=== PATIENT | male | born 1980 | race Caucasian/White ===

== ENCOUNTER 2018-12-02 14:31 | Inpatient (IN) | payer OTHER ==
[2018-12-02 18:09] VITALS: BMI 36.8
[2018-12-02] MEDS ORDERED: HEPARIN SODIUM,PORCINE 5,000 UNIT/ML 1 ML VIAL IV PRN (18:18)
[2018-12-02] MEDS ORDERED: HEPARIN SOD,PORK IN 0.45% NACL 25,000 UNIT in 0.45% NACL 1 250ML.BAG IV SCH (18:30)
[2018-12-02 18:32] LABS: HCT 45.5 % (39.0-53.0); MCH 29.1 pg (25.0-35.0); MCHC 32.9 g/dL (31.0-37.0); MCV 88.3 fL (80.0-100.0); Mean Platelet Volume 7.7; Platelet Count 202 k/uL (150-450); RBC 5.15 m/uL (4.30-5.90); RDW 12.9 % (11.5-15.5); WBC 5.8 k/uL (3.8-10.6)
[2018-12-02] MEDS: ACETAMINOPHEN TAB 325 MG TAB PO PRN (18:50)
[2018-12-02 18:51] LABS: ALT 82 U/L (21-72); AST 62 U/L (17-59); Albumin 4.8 g/dL (3.5-5.0); Alkaline Phosphatase 116 U/L (38-126); Anion Gap 11 mmol/L; Blood Urea Nitrogen 10 mg/dL (9-20); Calcium 9.6 mg/dL (8.4-10.2); Carbon Dioxide 27 mmol/L (22-30); Chloride 102 mmol/L (98-107); Glucose 101 mg/dL (74-99); Magnesium 2.1 mg/dL (1.6-2.3); Potassium 4.3 mmol/L (3.5-5.1); Sodium 140 mmol/L (137-145); Total Bilirubin 0.5 mg/dL (0.2-1.3); Total Protein 7.9 g/dL (6.3-8.2)
--- NOTE | 2018-12-02 22:16 | P.HPIM ---
History of Present Illness H&P Date: 12/02/18 The patient is a 38 yo M with a PMH of seizure disorder, polysubstance abuse, manic depressive, borderline personality, and PTSD who was sent in from [facility] under police custody for acute LLE DVT and PEs. The patient is an inmate at a local group home and reports that since his sentencing, he had been feeling depressed and had been ambulating only an hour daily and had been in bed remaining of the time. He reports that 3-5 days ago, he noticed a pain in the back of his L knee which gradually worsened, along w/ the leg being warmer and somewhat swollen as compared to the right. He also endorsed some episodes of pleuritic chest pain 1 week ago which resolved spontaneously. The patient was initially taken to [facility] where he was diagnosed w/ a LLE acute DVT along with pulmonary embolism. He was started on IV Heparin infusion and was transferred to [facility] for further evaluation. The patient reports that the pain in his L leg has improved significantly and is presently a 08/28. He denied additional episodes of chest pain, or SOB. Further denied nausea, vomiting, abdominal pain, or diaphoresis. The patient denied any prior history of clots. He notes that he was in foster care and therefore doesn't know his family history. He otherwise denied weight loss, blood in stools, or any additional complaints. Review of Systems Pertinent positives and negatives as discussed in HPI, a complete review of systems was performed and all other systems are negative. Past Medical History Past Medical History: Seizure Disorder History of Any Multi-Drug Resistant Organisms: None Reported Past Surgical History: No Surgical Hx Reported Past Psychological History: Anxiety, Bipolar, Depression, PTSD Smoking Status: Former smoker - Past Family History Father Family Medical History: Unable to Obtain Additional Family Medical History / Comment(s): Foster care Mother Family Medical History: Coronary Artery Disease (CAD) Additional Family Medical History / Comment(s): " heart disease". Foster Care Medications and Allergies Home Medications Medication Instructions Recorded Confirmed Type ARIPiprazole [Abilify] 10 mg PO HS 12/02/18 12/02/18 History Citalopram Hydrobromide [CeleXA] 20 mg PO DAILY 12/02/18 12/02/18 History Omeprazole 20 mg PO DAILY 12/02/18 12/02/18 History Phenytoin Sodium Extended 300 mg PO DAILY 12/02/18 12/02/18 History [Phenytek] Ranitidine HCl 150 mg PO BID 12/02/18 12/02/18 History Allergies Allergy/AdvReac Type Severity Reaction Status Date / Time trazodone Allergy Rash/Hives Verified 12/02/18 19:47 Physical Exam Vitals: Vital Signs Temp Pulse Resp BP Pulse Ox 12/02/18 18:33 75 18 12/02/18 18:32 98.1 F 75 18 130/93 97 Intake and Output 12/02/18 12/02/18 12/02/18 06:59 14:59 22:59 Intake Total 160 Output Total 450 Balance -290 Intake: Oral 160 Output: Urine 450 Other: Voiding Method Toilet Urinal # Voids 1 Weight 130.4 kg General: non toxic, no distress, appears at stated age, normal weight, in police custody w/ handcuffs Derm: no unusual rashes/lesions no unusual ecchymoses, warm, dry Head: atraumatic, normocephalic, symmetric Eyes: EOMI, no lid lag, anicteric sclera, pupils equal round reactive to light ENT: Nose and ears atraumatic, no thrush, no pharyngeal erythema Neck: No thyromegaly, no cervical lymphadenopathy, trachea midline, supple Mouth: no lip lesion, mucus membranes moist Cardiovascular: S1S2 reg, no murmur, positive posterior tibial pulse bilateral, no edema, capillary refill less than 2 seconds Lungs: CTA bilateral, no rhonchi, no rales , no accessory muscle use Abdominal: soft, nontender to palpation, no guarding, no appreciable orga nomegaly, normal bowel sounds Ext: LLE mild calf tenderness, increased wamrth of LLE as compared to RLE, no edema noted, no gross muscle atrophy, muscle strength 5 out of 5 in all 4 extremities grossly, no contractures Neuro: CN II-XI grossly intact, light touch intact all 4 extremities, finger to nose within normal limits, Psych: Alert, oriented, appropriate affect Results CBC & Chem 7: 12/02/18 18:22 12/02/18 18:22 Labs: Abnormal Lab Results - Last 24 Hours (Table) 12/02/18 12/02/18 Range/Units 18:22 18:22 APTT 31.0 H (22.0-30.0) sec Glucose 101 H (74-99) mg/dL AST 62 H (17-59) U/L ALT 82 H (21-72) U/L Thrombosis Risk Factor Assmnt - Choose All That Apply Any of the Below Risk Factors Present?: No Each Factor Represents 1 point: Obesity (BMI >25) Other Risk Factors: No Other congenital or acquired thrombophilia - If yes, enter type in comment: No Thrombosis Risk Factor Assessment Total Risk Factor Score: 1 Thrombosis Risk Factor Assessment Level: Very Low Risk Assessment and Plan Plan: Unprovoked LLE acute DVT and PE -Will switch to Eliquis 10 mg PO BID x 7 days, and then 5 mg PO bid -Consult Hematology -Check hypercoagulability profile -CBC daily Seizure disorder -C/w home med: Dilantin Deranged LFTs -Monitor for now Pulmonary nodular density - 1.7 cm -As visualized on CT scan done at [facility]. Patient will need follow-up CT as ou tpatient for monitoring DVT//GI prophylaxis -Eliquis -No indication for GI prophy. The patient is admitted with an anticipated greater than 2 midnight stay for evaluation of acute DVT and PE. CODE STATUS:Full Code Discussed with: Patient Anticipated discharge date: 12/04/[address] A total of 35 minutes was spent on the care of this complex patient more than 50% of the time was spent in counseling and care coordination.
[2018-12-03] MEDS: ARIPiprazole 10 MG TAB PO SCH ×2 (00:14→20:34)
[2018-12-03] MEDS: APIXABAN 5 MG TAB PO SCH ×3 (00:14→20:33)
[2018-12-03 07:02] LABS: Basophils % (A) 1 %; Eosinophils # (A) 0.1 k/uL (0-0.7); Eosinophils % (A) 2 %; HCT 42.5 % (39.0-53.0); Lymphocytes # (A) 2.3 k/uL (1.0-4.8); Lymphocytes % (A) 40 %; MCH 29.1 pg (25.0-35.0); MCHC 32.9 g/dL (31.0-37.0); MCV 88.5 fL (80.0-100.0); Mean Platelet Volume 7.5; Monocytes # (A) 0.4 k/uL (0-1.0); Monocytes % (A) 6 %; Neutrophils # (A) 2.7 k/uL (1.3-7.7); Neutrophils % (A) 48 %; Platelet Count 167 k/uL (150-450); WBC 5.7 k/uL (3.8-10.6)
[2018-12-03 07:23] LABS: ALT 67 U/L (21-72); AST 40 U/L (17-59); Albumin 4.2 g/dL (3.5-5.0); Alkaline Phosphatase 95 U/L (38-126); Anion Gap 8 mmol/L; Blood Urea Nitrogen 12 mg/dL (9-20); Calcium 9.5 mg/dL (8.4-10.2); Carbon Dioxide 26 mmol/L (22-30); Chloride 103 mmol/L (98-107); Glucose 98 mg/dL (74-99); Potassium 4.3 mmol/L (3.5-5.1); Sodium 137 mmol/L (137-145); Total Bilirubin 0.6 mg/dL (0.2-1.3); Total Protein 7.1 g/dL (6.3-8.2)
[2018-12-03] MEDS: CITALOPRAM HYDROBROMIDE 20 MG TAB PO SCH (08:39)
[2018-12-03] MEDS: PHENYTOIN SODIUM EXTENDED 100 MG CAP PO SCH (08:39)
[2018-12-03] MEDS: PANTOPRAZOLE 40 MG TABLET PO SCH (08:40)
--- NOTE | 2018-12-03 13:06 | P.PN ---
Subjective Progress Note Date: 12/03/18 Principal diagnosis: Follow-up for unprovoked DVT/PE Patient was seen and examined currently asymptomatic denies any chest pain or trouble breathing he is on room air. Currently reports no leg pain. Denies any GI bleeding. Objective - Vital Signs Vital signs: Vital Signs Temp 97.5 F L 12/03/18 12:13 Pulse 67 12/03/18 12:13 Resp 20 12/03/18 12:13 BP 133/74 12/03/18 12:13 Pulse Ox 94 L 12/03/18 12:13 Intake & Output 12/02/18 12/03/18 12/03/18 18:59 06:59 18:59 Intake Total 160 286 120 Output Total 450 300 Balance 160 -164 -180 Weight 130.4 kg 132.5 kg Intake: Intake, IV Titration 46 Amount Heparin Sod,Pork in 0.45% 46 NaCl 25,000 unit In 0.45 % NaCl 1 250ml.bag @ 17. 638 UNITS/KG/HR 23 mls/hr IV .[id number] [facility] Rx#: [id number] Oral 160 240 120 Output: Urine 450 300 Other: Voiding Method Toilet Toilet Toilet Urinal Urinal Urinal # Voids 2 1 - Exam Constitutional: vital signs stable, Not in acute distress, pleasant, conversant Lungs: Clear to auscultation bilaterally, clear to percussion, normal respiratory effort no use of accessory muscles Cardiovascular: Regular rate and rhythm, no murmurs, no gallops, no rubs, no peripheral edema Gastrointestinal: Soft, no tenderness to palpation, no palpable hepatosplenomegally, bowel sounds positive, no abdominal wall hernias Skin: Unremarkable temperature, tone, texture, and turgor, no induration or subcutaneous nodule, no rashes, no lesions, no ulcers Extremities: No digital cyanosis or clubbing, peripheral pulses palpable and equal over bilateral radial arteries and dorsalis pedis artery, no calf muscle tenderness Psych: Alert, oriented to place, person and time, appropriate affect, intact judgment - Labs CBC & Chem 7: 12/03/18 06:24 12/03/18 06:24 Labs: Abnormal Lab Results - Last 24 Hours (Table) 12/02/18 12/02/18 Range/Units 18:22 18:22 APTT 31.0 H (22.0-30.0) sec Glucose 101 H (74-99) mg/dL AST 62 H (17-59) U/L ALT 82 H (21-72) U/L Assessment and Plan Assessment: 38-year-old male with no significant past medical history is currently an inmate accompanied by 2 police officers in the room. He complained of leg pain at intermediate for which further investigation was initiated he was having some swelling in his left thigh along with pain. He was taken to [facility] at which she was diagnosed with left femoral vein acute DVT extending all the way down to the popliteal vein. CT angiogram of the chest revealed left midlung and both lung bases filling defects suspicious for PE Patient was initiated on heparin drip and transferred to our facility for hematology evaluation. Hematology is performing computed tomography scan of abdomen and chest and pelvis to rule out any underlying malignancy due to unprovoked VTE. Otherwise heparin drip was discontinued and he was initiated on Eliquis therapeutic dose on which if tolerated will be discharged back to intermediate on this regimen. He is to follow up with hematology as an outpatient for further workup. Plan: Unprovoked VTE, left lower extremity DVT and pulmonary embolism Patient initiated on Eliquis therapeutic dose he will require 3-6 months of treatment. Follow-up outpatient with hematology. Coagulopathy workup as an outpatient with hematology Check CT abdomen chest pelvis to rule out any underlying malignancy Incidental finding of lung nodule We'll follow up on CAT scan results Outpatient follow-up with serial CAT scans History of seizures Continue Dilantin Anticipated discharge today or tomorrow back to intermediate with prescription for Eliquis.
[2018-12-03] MEDS: IOPAMIDOL-300 CONTRAST 30 ML VIAL (ORAL USE) PO PRN ×2 (14:43→15:45)
--- NOTE | 2018-12-03 15:39 | P.CONS ---
History of Present Illness - Reason for Consult Consult date: 12/03/18 Unprovoked Thrombus PE/DVTs Requesting physician: Seun [place] - Chief Complaint SOB and swelling - History of Present Illness Incarcerated male with new diagnosis of Thrombolic event, unprovoked Review of Systems A 14 point review of system assessed and completed and all negative except HPI Past Medical History Past Medical History: Seizure Disorder History of Any Multi-Drug Resistant Organisms: None Reported Past Surgical History: No Surgical Hx Reported Past Psychological History: Anxiety, Bipolar, Depression, PTSD Smoking Status: Former smoker - Past Family History Father Family Medical History: Unable to Obtain Additional Family Medical History / Comment(s): Foster care Mother Family Medical History: Coronary Artery Disease (CAD) Additional Family Medical History / Comment(s): " heart disease". Foster Care Medications and Allergies Home Medications Medication Instructions Recorded Confirmed Type ARIPiprazole [Abilify] 10 mg PO HS 12/02/18 12/02/18 History Citalopram Hydrobromide [CeleXA] 20 mg PO DAILY 12/02/18 12/02/18 History Omeprazole 20 mg PO DAILY 12/02/18 12/02/18 History Phenytoin Sodium Extended 300 mg PO DAILY 12/02/18 12/02/18 History [Phenytek] Ranitidine HCl 150 mg PO BID 12/02/18 12/02/18 History Apixaban [Eliquis] 5 mg PO BID 90 Days #180 tab 12/04/18 Rx Allergies Allergy/AdvReac Type Severity Reaction Status Date / Time trazodone Allergy Rash/Hives Verified 12/02/18 19:47 Physical Exam Vitals: Vital Signs Temp Pulse Resp BP Pulse Ox 12/03/18 12:13 97.5 F L 67 20 133/74 94 L 12/03/18 11:12 68 20 12/03/18 08:54 68 20 12/03/18 08:53 97.7 F 68 20 119/70 93 L 12/03/18 04:00 98.2 F 58 L 18 132/88 98 12/03/18 00:00 98.6 F 69 18 130/74 99 12/02/18 20:00 98.8 F 79 18 138/62 95 12/02/18 18:33 75 18 12/02/18 18:32 98.1 F 75 18 130/93 97 Intake and Output 12/03/18 12/03/18 12/03/18 06:59 14:59 22:59 Intake Total 286 600 Output Total 300 Balance 286 300 Intake: Intake, IV Titration 46 Amount Heparin Sod,Pork in 0.45% 46 NaCl 25,000 unit In 0.45 % NaCl 1 250ml.bag @ 17. 638 UNITS/KG/HR 23 mls/hr IV .[id number] [facility] Rx#: [id number] Oral 240 600 Output: Urine 300 Other: Voiding Method Toilet Toilet Urinal Urinal # Voids 2 1 Weight 132.5 kg - Constitutional General appearance: average body habitus, no acute distress - EENT Eyes: EOMI, PERRLA ENT: other - Neck Neck: normal ROM - Respiratory Respiratory: bilateral: CTA - Cardiovascular Rhythm: regular - Gastrointestinal General gastrointestinal: normal bowel sounds, soft, tenderness - Integumentary Integumentary: pale - Neurologic Neurologic: CNII-XII intact - Musculoskeletal Musculoskeletal: gait normal, generalized weakness, strength equal bilaterally - Psychiatric Psychiatric: A&O x's 3, appropriate affect, intact judgment & insight Results CBC & Chem 7: 12/04/18 07:20 12/03/18 06:24 Labs: Abnormal Lab Results - Last 24 Hours (Table) 12/02/18 12/02/18 Range/Units 18:22 18:22 APTT 31.0 H (22.0-30.0) sec Glucose 101 H (74-99) mg/dL AST 62 H (17-59) U/L ALT 82 H (21-72) U/L CT scan - abdomen: report reviewed CT scan - chest: report reviewed CT scan - pelvis: report reviewed Venous US: report reviewed Assessment and Plan Plan: Unprovoked DVT/PE: - COntinue on ELiquis at this time - Two Unprovoked events - Rec for lifelong anticoagulation therapy - Hypercoagulable work-up as outpatient - Rec CT Chest/Abd/Pelvis Physician Attes: I have completed the above impression and plan and performed the complete history and physical agree with dictation, dictated as a scribe.
[2018-12-03] MEDS: SODIUM CHLORIDE 0.9% 1,000 ML IV SCH ×2 (15:45→17:35)
[2018-12-03] MEDS: ACETAMINOPHEN TAB 325 MG TAB PO PRN (17:39)
--- NOTE | 2018-12-03 22:34 | CT ---
EXAMINATION TYPE: CT ChestAbdPelvis w con DATE OF EXAM: 12/03/2018 COMPARISON: None HISTORY: Known PE and DVT. R/O underlying malignancy. CT DLP: 2052.8 mGycm Automated exposure control for dose reduction was used. CONTRAST: CT scan of the chest, abdomen and pelvis is performed with Oral Contrast and with IV Contra st, patient injected with 100 mL of Isovue 300. FINDINGS: AIRWAYS: Unremarkable. LUNGS: In the left lower lobe caudally are two 2 cm subpleural opacities, which can be further charac terized with follow-up full inspiration CT. Lungs are otherwise clear and well expanded bilaterally. PLEURAL SPACES: Negative. MEDIASTINUM-PHIL: Bilateral segmental and lobar pulmonary emboli are noted; the right ventricle is si milar in size to the left ventricle and there is flattening of the anterior ventricular septum. This could correlate with a clinical diagnosis of right heart strain. Aorta is negative. There is no cardi omegaly or pericardial effusion. OTHER (CHEST): None. LIVER/GB: No significant abnormality is appreciated. PANCREAS: No significant abnormality is seen. SPLEEN: No significant abnormality is seen. ADRENALS: No significant abnormality is seen. KIDNEYS: No significant abnormality is seen. BOWEL: No significant abnormality is seen. REPRODUCTIVE ORGANS: No gross abnormality seen. LYMPH NODES: No greater than 1 cm abdominal or pelvic lymph nodes are appreciated. OSSEOUS STRUCTURES: No significant abnormality is seen. OTHER: No acute vascular findings. IMPRESSION: 1) CHEST: PROMINENT BILATERAL PULMONARY EMBOLI WITH BORDERLINE CHANGES FOR RIGHT HEART STRAIN. TWO L LL PULMONARY SUBPLEURAL NODULES. 2) ABDOMEN-PELVIS: NO ACUTE PROCESS; NO FOCAL FINDINGS.
[2018-12-04] MEDS: SODIUM CHLORIDE 0.9% 1,000 ML IV SCH ×2 (01:53→08:25)
[2018-12-04 06:34] VITALS: TEMP 97
[2018-12-04 07:37] LABS: Basophils % (A) 1 %; Eosinophils # (A) 0.1 k/uL (0-0.7); Eosinophils % (A) 1 %; HCT 46.6 % (39.0-53.0); HGB 15.3 gm/dL (13.0-17.5); Lymphocytes % (A) 34 %; MCH 28.8 pg (25.0-35.0); MCHC 32.8 g/dL (31.0-37.0); MCV 87.8 fL (80.0-100.0); Mean Platelet Volume 7.6; Monocytes # (A) 0.4 k/uL (0-1.0); Monocytes % (A) 6 %; Neutrophils # (A) 3.2 k/uL (1.3-7.7); Neutrophils % (A) 56 %; Platelet Count 221 k/uL (150-450); RBC 5.31 m/uL (4.30-5.90); RDW 12.9 % (11.5-15.5); WBC 5.7 k/uL (3.8-10.6)
[2018-12-04] MEDS: CITALOPRAM HYDROBROMIDE 20 MG TAB PO SCH (08:14)
[2018-12-04] MEDS: APIXABAN 5 MG TAB PO SCH (08:14)
[2018-12-04] MEDS: PANTOPRAZOLE 40 MG TABLET PO SCH (08:14)
[2018-12-04] MEDS: PHENYTOIN SODIUM EXTENDED 100 MG CAP PO SCH (11:10)
--- NOTE | 2018-12-04 11:25 | P.DS ---
Providers Date of admission: 12/02/18 17:47 Expected date of discharge: 12/04/18 Attending physician: Elina Marie MD Consults: 12/02/18 22:14 Consult Physician Urgent Consulting Provider: Eddi Jenkins Consult Reason/Comments: unprovoked DVT and PE Do you want consulting provider notified?: Yes Primary care physician: Stated None Hospital Course: Final diagnosis at discharge Unprovoked VTE, left lower extremity DVT and pulmonary embolism Incidental two left lower lobe (LLL) subpleural nodules were detected, based on multiplicity , inflammatory or infectious causes is more likely , outpatient survey as outlined below is recommended secondary diagnosis History of seizures hospital course 38-year-old male with no significant past medical history is currently an inmate accompanied by 2 police officers in the room. He complained of leg pain at custodial for which further investigation was initiated he was having some swelling in his left thigh along with pain. He was taken to [facility] at which she was diagnosed with left femoral vein acute DVT extending all the way down to the Calf veins. CT angiogram of the chest revealed left mid lung and both lung bases filling defects suspicious for PE Patient was initiated on heparin drip and transferred to our facility for hematology evaluation. Hematology is performing computed tomography scan of abdomen and chest and pelvis to rule out any underlying malignancy due to unprovoked VTE, which was unremarkable except for two incidental subpleural nodules as indicated below in f/u recs. Heparin drip was discontinued and he was initiated on Eliquis therapeutic dose on which he tolerated well he continues to be asymptomatic at t his time. patient seen and examined on day of discharge, tolerating treatment well, on room air, no tachypnea, blood pressure is stable, no chest pain or leg pain . leg swelling subsided. risk stratification done, Pro BNP negative, troponins negative, which indicates no right heart strain . Pulmonary embolism severity index score, he is Class I Low Risk for complications. Constitutional: vital signs stable, Not in acute distress, pleasant, conversant Lungs: Clear to auscultation bilaterally, clear to percussion, normal respiratory effort no use of accessory muscles Cardiovascular: Regular rate and rhythm, no murmurs, no gallops, no rubs, no peripheral edema Gastrointestinal: Soft, no tenderness to palpation, Bowel sounds positive, no abdominal wall hernias Skin: Unremarkable temperature, tone, texture, and turgor, no induration or subcutaneous nodule, no rashes, no lesions, no ulcers Extremities: No digital cyanosis or clubbing, peripheral pulses palpable and equal over bilateral radial arteries and dorsalis pedis artery, no calf muscle tenderness Psych: Alert, oriented to place, person and time, appropriate affect Patient discharged back to the custodial facility in stable clinical condition Venous thromboembolism (VTE) based on pulmonary embolism severity index score, he is Class I Low Risk for complications Continue Eliquis 10 mg PO BID for 5 more days (total of 7 days) then 5 mg PO BID for 6 months, do not stop the medication until you get reevaluated by hematology Coagulopathy workup as an outpatient with hematology monitor for any signs of GI bleeding monitor for any signs of recurrence of symptoms of VTE Incidental finding of Pulmonary nodules (two LLL 2 cm subpleural nodules) most likely infectious or inflammatory due to multiplicity serial CT scan evaluation is recommended Follow up with full inspiration spiral CT in 3 months , based on this evaluation , if no change in size, then repeat CT in 9, 12,18,24 months from initial incidental finding if at any point a change in size or character is detected, then full pathological evaluation is recommended follow up with pulmonary service, and hematology 50 minutes were spent discharging this patient, and more than 50% of the time was spent in counseling the patient and family and in coordinating care. Pertinent Studies: CT chest abd pelvis Patient Condition at Discharge: Good Plan - Discharge Summary Discharge Rx Participant: No New Discharge Prescriptions: New Apixaban [Eliquis] 5 mg PO BID 90 Days #180 tab Continue Ranitidine HCl 150 mg PO BID Phenytoin Sodium Extended [Phenytek] 300 mg PO DAILY Omeprazole 20 mg PO DAILY Citalopram Hydrobromide [CeleXA] 20 mg PO DAILY ARIPiprazole [Abilify] 10 mg PO HS Discharge Medication List ARIPiprazole [Abilify] 10 mg PO HS 12/02/18 [History] Citalopram Hydrobromide [CeleXA] 20 mg PO DAILY 12/02/18 [History] Omeprazole 20 mg PO DAILY 12/02/18 [History] Phenytoin Sodium Extended [Phenytek] 300 mg PO DAILY 12/02/18 [History] Ranitidine HCl 150 mg PO BID 12/02/18 [History] Apixaban [Eliquis] 5 mg PO BID 90 Days #180 tab 12/04/18 [Rx] Follow up Appointment(s)/Referral(s): Eddi Jenkins MD [STAFF PHYSICIAN] - 3 Weeks Donna Johnson MD [STAFF PHYSICIAN] - 03/05/19 (LLL subpleural nodule ) Ambulatory/Diagnostic Orders: Miscellaneous Radiology Order [RAD.AMB] Location: None Selected Patient Instructions/Handouts: Pulmonary Embolism (DC), Deep Vein Thrombosis (DC), Pulmonary Nodules (ED), Safe Use of Anticoagulants (DC) Activity/Diet/Wound Care/Special Instructions: Patient will return to [facility] at discharge. Send med list and scripts for all new medications with patient to the custodial at discharge. Discharge Disposition: OTHER INSTITUTION NOT DEFINED
[2018-12-04 11:44] VITALS: BP 121/78; PULSE 65; RESP 20
[2018-12-05 11:39] LABS: Anti-Thrombin III Activity 90 % (79-109)
[2018-12-05 11:41] LABS: Act Protein C Resist Interp Negative; Activated Protein C Resistance 3.62 (1.60-4.90)
== END 2018-12-04 12:10 | DRG 299 ==
LOC: 3SCARD 17:47
PROVIDERS: ADMIT Internal Medicine; ATTEND Internal Medicine
DX: I82.412 Acute embolism and thrombosis of left femoral vein (principal); I26.99 Other pulmonary embolism without acute cor pulmonale; I82.432 Acute embolism and thrombosis of left popliteal vein; F31.9 Bipolar disorder, unspecified; F43.10 Post-traumatic stress disorder, unspecified; F41.8 Other specified anxiety disorders; G40.909 Epilepsy, unspecified, not intractable, without status epilepticus; R91.8 Other nonspecific abnormal finding of lung field; F60.3 Borderline personality disorder; F19.10 Other psychoactive substance abuse, uncomplicated; Z79.899 Other long term (current) drug therapy; Z87.891 Personal history of nicotine dependence; Z82.49 Family history of ischemic heart disease and other diseases of the circulatory system; Z88.8 Allergy status to other drugs, medicaments and biological substances
CPT/HCPCS: 71260; 74177; 80053; 81241; 83735; 83880; 84484; 85025; 85027; 85300; 85306; 85307; 85730